=== PATIENT | male | born 1980 | race Caucasian/White ===

== ENCOUNTER 2016-06-21 20:55 | Emergency (ER) | payer BC, OTHER ==
[~2016-06-21] VITALS: Ht 180.3 cm; Wt 133.8 kg
--- NOTE | ~2016-06-21 | EKG ---
[address] [address] ELECTROCARDIOGRAM REPORT Name: ISREAL MOONEY Room #: [facility]#: [id number] Admission: 06/21/16 Attend Phys: Discharge: 06/21/16 Date of : 76 Report #: [id number] THIS REPORT FOR: //name// [facility] Test Date: 2016-06-21 Test Time: 21:00:34 Pat Name: ISREAL MOONEY Department: Room: Gender: Industrial Technician: RIC : 1980 Requested By: Zhanna Jones Order Number: [id number] MD: Williams Smith Measurements Intervals [place] Rate: 60 P: 1 WA: 178 QRS: -23 QRSD: 108 T: 4 QT: 429 QTc: 429 Interpretive Statements Sinus rhythm Borderline left axis deviation Borderline T wave abnormalities No previous ECG available for comparison Electronically Signed On 06-22-2016 13:33:37 CDT by Williams Smith [email or web address] <ELECTRONICALLY SIGNED> By: Williams Smith MD 06/22/16 1333 [address] [facility] MD NELSY Miranda
[~2016-06-21 20:55] MED LIST: CO Q-10100 MG PO; COLACE100 MG PO; FISH OIL 1,001000 M2 PO; GINKGO BILOBA500 MG PO; HYDROCODONE-AP1 EAC6 PO; L-ARGININE500 M1 PO; MELATONIN3 MG PO; NEURONTIN 300300 M1 PO; NORCO 5-325 TA1 EACH PO; VITAMIN B-12500 MCG PO; XANAX 0.25 MG0.25 MG PO; ZOFRAN ODT4 MG DISSOLVE
[2016-06-21 21:28] LABS: ABSOLUTE NEUTROPHILS 5.4 thou/uL (1.4-8.2); BASOPHILS 0.5 % (0.0-2.0); EOSINOPHILS 2.5 % (0.0-3.0); HEMATOCRIT 43.1 % (42.0-52.0); HEMOGLOBIN 14.9 gm/dL (14.0-18.0); LYMPHOCYTES 41.9 % (24.0-44.0); MANUAL DIFF NO; MCH 29.8 pg (26.0-34.0); MCHC 34.5 g/dL (28.0-37.0); MCV 86.4 fL (80.0-100.0); PLATELET COUNT 255 thou/uL (150-400); POLYS 48.1 % (36.0-66.0); RBC 4.99 mil/uL (4.50-6.00); RDW 13.3 % (10.5-14.5); WBC 11.2 thou/uL (4.0-11.0)
[2016-06-21 21:36] LABS: ANION GAP 9 mmol/L (7-16); BUN 16 mg/dL (7-18); CALCIUM 9.4 mg/dL (8.5-10.1); CHLORIDE 105 mmol/L (98-107); CO2 28 mmol/L (21-32); CREATININE 1.1 mg/dL (0.6-1.3); GLUCOSE 85 mg/dL (70-99); POTASSIUM 4.1 mmol/L (3.5-5.1); SODIUM 142 mmol/L (136-145)
[2016-06-21 21:45] LABS: APTT 27.5 Seconds (24.5-32.8); PROTIME 10.1 Seconds (9.3-11.4)
[2016-06-21 21:49] LABS: ALBUMIN 4.4 g/dL (3.4-5.0); ALKALINE PHOSPHATASE 61 U/L (46-116); NT-PRO BRAIN NAT PEPTIDE 26 pg/mL (<300); SGOT 46 U/L (15-37); SGPT 117 U/L (30-65); TOTAL BILIRUBIN 0.8 mg/dL (<0.1-1.0); TOTAL PROTEIN 7.4 g/dL (6.4-8.2); TROPONIN-I < 0.04 ng/mL (<0.04-0.07)
== END 2016-06-21 23:49 | disposition home or self-care (01) ==
LOC: ER 20:55
PROVIDERS: Emergency Medicine
DX: R07.89 Other chest pain (principal); G47.30 Sleep apnea, unspecified

== ENCOUNTER → 2017-06-05 | Outpatient (CLI) | payer OTHER | LOC: RAD 16:34 | DX: R07.89 Other chest pain (principal) ==

== ENCOUNTER → 2017-06-05 | Outpatient (CLI) | payer OTHER | LOC: CAT 08:06 | DX: Z13.6 Encounter for screening for cardiovascular disorders (principal) ==